=== PATIENT | male | born 1955 ===

== ENCOUNTER 2021-01-17 09:02 | Outpatient (CLI) | payer OTHER | END 2021-01-17 09:12 | disposition home or self-care (01) | LOC: RAD 09:02 | PROVIDERS: ATTEND Urology | DX: N20.0 Calculus of kidney (principal) ==

== ENCOUNTER 2021-02-08 13:23 | Outpatient (CLI) | payer OTHER | END 2021-02-08 13:32 | disposition home or self-care (01) | LOC: RAD 13:23 | PROVIDERS: ATTEND Urology | DX: I10 Essential (primary) hypertension (principal); E11.9 Type 2 diabetes mellitus without complications ==

== ENCOUNTER 2021-03-17 16:04 | Outpatient (CLI) | payer OTHER | END 2021-03-17 16:10 | disposition home or self-care (01) | LOC: LAB 16:04 | PROVIDERS: ATTEND Urology | DX: N39.0 Urinary tract infection, site not specified (principal); B96.29 Other Escherichia coli [E. coli] as the cause of diseases classified elsewhere ==

== ENCOUNTER 2021-03-21 09:15 | Inpatient (IN) | payer OTHER ==
[~2021-03-21] VITALS: Ht 170.2 cm; Wt 82.6 kg
[2021-03-21] MEDS ORDERED: TOPROL XL50 M1 PO (10:55)
[2021-03-21] MEDS ORDERED: METFORMIN HCL1000 M2 PO (10:56)
[2021-03-21] MEDS ORDERED: ATORVASTATIN CA10 MG PO (10:56)
== END 2021-04-07 14:05 | disposition home or self-care (01) | DRG 694 ==
LOC: SURH 03-22 09:15 → O/R 04-05 11:48 → SURH 04-05 16:30
PROVIDERS: ADMIT Urology; ATTEND Urology
PROC: 0TC08ZZ Extirpation of Matter from Right Kidney, Via Natural or Artificial Opening Endoscopic (ICD-10-PCS; principal; 2021-04-05 16:30)
DX: N20.0 Calculus of kidney (principal); N39.0 Urinary tract infection, site not specified; N32.3 Diverticulum of bladder; N28.1 Cyst of kidney, acquired; Z20.822 Contact with and (suspected) exposure to COVID-19

== ENCOUNTER → 2021-03-27 12:33 | Outpatient (CLI) | payer OTHER ==
[~2021-03-27 12:33] MED LIST: ATORVASTATIN CA10 MG PO; METFORMIN HCL1000 M2 PO; TOPROL XL50 M1 PO
== END | disposition home or self-care (01) ==
LOC: LAB 12:33
PROVIDERS: ATTEND Urology
DX: N30.00 Acute cystitis without hematuria (principal)

== ENCOUNTER 2021-03-31 09:20 | Outpatient (CLI) | payer OTHER | END 2021-03-31 15:19 | disposition home or self-care (01) | LOC: LAB 09:20 | PROVIDERS: ATTEND Urology | DX: Z20.828 Contact with and (suspected) exposure to other viral communicable diseases (principal) ==

== ENCOUNTER 2021-04-12 07:46 | Outpatient (CLI) | payer OTHER | END 2021-04-12 08:04 | disposition home or self-care (01) | LOC: TOM 07:46 | PROVIDERS: ATTEND Urology | DX: Q61.02 Congenital multiple renal cysts (principal); N20.0 Calculus of kidney ==

== ENCOUNTER 2021-05-03 06:02 | Inpatient (IN) | payer OTHER ==
[~2021-05-03] VITALS: Ht 170.2 cm; Wt 81.6 kg
[2021-05-03] MEDS ORDERED: FINASTERIDE5 MG (14:38)
[2021-05-03] MEDS ORDERED: TAMSULOSIN HCL0.4 MG (14:38)
== END 2021-05-04 08:48 | disposition home or self-care (01) | DRG 713 ==
LOC: CIR.AMB 06:02 → O/R 11:13 → SURG 11:13 → CIR.AMB 16:02 → SURG 05-04 08:48
PROVIDERS: ADMIT Urology; ATTEND Urology
PROC: 0T768DZ Dilation of Right Ureter with Intraluminal Device, Via Natural or Artificial Opening Endoscopic (ICD-10-PCS; 2021-05-03)
PROC: BT1DYZZ Fluoroscopy of Right Kidney, Ureter and Bladder using Other Contrast (ICD-10-PCS; 2021-05-03)
PROC: 0VT08ZZ Resection of Prostate, Via Natural or Artificial Opening Endoscopic (ICD-10-PCS; principal; 2021-05-03 07:00)
DX: N40.1 Benign prostatic hyperplasia with lower urinary tract symptoms (principal); N39.0 Urinary tract infection, site not specified; N20.2 Calculus of kidney with calculus of ureter; N28.1 Cyst of kidney, acquired; N32.3 Diverticulum of bladder; N41.1 Chronic prostatitis; I10 Essential (primary) hypertension; E11.9 Type 2 diabetes mellitus without complications

== ENCOUNTER 2021-05-08 08:38 | Outpatient (CLI) | payer OTHER ==
[~2021-05-08 08:38] MED LIST changes: +FINASTERIDE5 MG; +TAMSULOSIN HCL0.4 MG
== END 2021-05-08 09:00 | disposition home or self-care (01) ==
LOC: RAD 08:38
PROVIDERS: ATTEND Urology
DX: N20.0 Calculus of kidney (principal)

== ENCOUNTER 2021-06-06 08:25 | Outpatient (CLI) | payer OTHER | END 2021-06-06 08:34 | disposition home or self-care (01) | LOC: RAD 08:25 | PROVIDERS: ATTEND Urology | DX: N20.0 Calculus of kidney (principal); N30.00 Acute cystitis without hematuria ==

== ENCOUNTER 2021-06-14 06:00 | Day surgery (SDC) | payer OTHER | END 2021-06-14 16:41 | disposition home or self-care (01) | LOC: CIR.AMB 06:00 | PROVIDERS: ATTEND Urology | DX: T83.098A Other mechanical complication of other urinary catheter, initial encounter (principal); Z20.822 Contact with and (suspected) exposure to COVID-19 ==